=== PATIENT | female | born 1960 | race Caucasian/White ===

== ENCOUNTER 2017-09-04 11:02 | Emergency (ER) | payer MEDICARE, OTHER, SELFPAY | END 2017-09-04 11:25 | disposition home or self-care (01) | LOC: SCSER 11:02 | DX: D17.1 Benign lipomatous neoplasm of skin and subcutaneous tissue of trunk (principal); E78.5 Hyperlipidemia, unspecified; I10 Essential (primary) hypertension; E10.9 Type 1 diabetes mellitus without complications; F17.210 Nicotine dependence, cigarettes, uncomplicated | CPT/HCPCS: 99282 ==

== ENCOUNTER 2017-09-27 11:27 | Outpatient (CLI) | payer MEDICARE | END 2017-09-27 11:28 | disposition home or self-care (01) | LOC: BICMAMMO 11:27 | PROVIDERS: ATTEND Family Medicine | DX: Z12.31 Encounter for screening mammogram for malignant neoplasm of breast (principal); Z80.3 Family history of malignant neoplasm of breast | CPT/HCPCS: 77063; 77067 ==

== ENCOUNTER 2018-02-08 07:45 | Outpatient (CLI) | payer MEDICARE ==
--- NOTE | 2018-02-08 09:55 | CT ---
CT CHEST NONCONTRAST LOW DOSE SCREENING: FINDINGS: Tobacco abuse. COMPARISON: 05/22/15. FINDINGS: Scattered calcified granulomata are apparent, measuring up to 0.9 cm in the right lower lobe. Calcif ied mediastinal lymph nodes are also apparent, consistent with healed granulomatous disease. No nonc alcified nodules are apparent. Lungs remain hyperinflated with scattered emphysematous change. Lack of contrast limits evaluation of mediastinum. No bulky adenopathy. Calcification in the celestin ry arteries. Bovine origin of the great vessels at the aortic arch. IMPRESSION: 1. Lung RADS category 1. Negative. Suggest routine followup. 2. Chronic obstructive pulmonary disease. 3. Atherosclerosis. POS: [facility]
== END 2018-02-08 07:46 | disposition home or self-care (01) ==
LOC: CT 07:45
PROVIDERS: ATTEND Family Medicine
DX: F17.210 Nicotine dependence, cigarettes, uncomplicated (principal); J44.9 Chronic obstructive pulmonary disease, unspecified; I25.10 Atherosclerotic heart disease of native coronary artery without angina pectoris
CPT/HCPCS: G0297

== ENCOUNTER 2018-05-18 16:50 | Emergency (ER) | payer MEDICARE ==
[~2018-05-18 16:50] MED LIST: ISOVUE-370 76%-LOCM 1 ML ONE
[2018-05-18 17:44] LABS: #Basophils 0.2 thou/uL (0.0-0.2); #Eosinphils 0.1 thou/uL (0.0-0.7); #Lymphocytes 4.1 thou/uL (1.20-3.40); #Monocytes 0.5 thou/uL (0.11-0.59); %Basophils 1.6 % (0.0-1.0); %Eosinophils 0.9 % (0.0-10.0); %Monocytes 4.7 % (0.0-10.0); %Neutrophils 54.8 % (42.0-75.0); Hemoglobin 14.1 g/dL (12.0-16.0); Mean Corpuscular HGB CONC 33.1 g/dL (32.0-36.0); Mean Corpuscular Hemoglobin 31.4 pg (27.0-31.0); Mean Corpuscular Volume 94.8 fL (78.0-98.0); Mean Platelet Volume 8.8 fL (7.4-10.4); Platelet Count 314 thou/uL (130-400); RBC Distribution Width 11.7 % (11.5-14.5); Red Blood Cell (RBC) Count 4.51 mill/uL (4.20-5.40); White Blood Cell (WBC) Count 10.8 thou/uL (4.8-10.8)
[2018-05-18 17:55] LABS: ALT (SGPT) 24 U/L (8-55); AST (SGOT) 31 U/L (5-34); Albumin 4.7 g/dL (3.5-5.0); Alkaline Phosphatase 154 U/L (40-150); Anion Gap 21 mmol/L (10-20); BUN (Urea Nitrogen) 24 mg/dL (9.8-20.1); Bilirubin, Total 0.4 mg/dL (0.2-1.2); CK (CPK) 54 U/L (29-168); Calc. Creatinine Clearance 0 mL/min (70-130); Calcium 11.3 mg/dL (7.8-10.44); Carbon Dioxide 24 mmol/L (22-29); Chloride 96 mmol/L (98-107); Estimated GFR-MDRD 34; Globulin 3.7 g/dL (2.4-3.5); Glucose 318 mg/dL (70-105); Lipase 43 U/L (8-78); Protein, Total 8.4 g/dL (6.0-8.3); Sodium 136 mmol/L (136-145)
[2018-05-18 17:59] LABS: CKMB 0.9 ng/mL (0-6.6); Troponin I Less than 0.010 ng/mL (< 0.028)
[2018-05-18 18:29] LABS: Base Excess-Venous 3.7 mmol/L (0 (+/- 2.5)); Bicarbonate (HCO3v) 29.7 mmol/L (1.0-85.0); CO2 Tension (PvCO2) 49.6 mmHg (41.0-51.0); Calcium, Ionized 1.22 mmol/L (1.12-1.32); Hemoglobin - Calc 12.4 g/dL (12.0-18.0); O2 Tension (PvO2) 35.5 mmHg (35.0-45.0); Potassium 4.3 mmol/L (3.4-4.7); T. Carbon Dioxide 31.2 mmol/L (1.0-85.0); pH (Venous) 7.385 (7.35-7.45); vO2 Saturation-calc 66.3 % (94-98)
[2018-05-18 18:43] LABS: Bilirubin Moderate (Negative); Blood, Urine Negative (Negative); Clarity CLEAR (Clear); Glucose, Urine (Dipstick) >=1000 mg/dL (Negative); Leukocyte Negative (Negative); Nitrite Negative (Negative); Protein, Urine (Dipstick) Negative (Neg-Trace); Specific Gravity, Urine 1.028 (1.002-1.036); Urobilinogen 0.2 mg/dL (0.2-1.0); pH, Urine 5.5 (5.0-9.0)
--- NOTE | 2018-05-18 19:45 | RAD ---
PORTABLE CHEST ONE VIEW: 05/18/18 at 4:32 p.m. HISTORY: Nausea, vomiting, hyperglycemia. FINDINGS: The heart size is normal. The lungs were expanded without focal areas of consolidation, pneumothorace s or pleural effusions. IMPRESSION: No acute process. POS: [facility]
--- NOTE | 2018-05-18 22:16 | CT ---
CT PULMONARY ANGIOGRAM WITH IV CONTRAST AND 3D POSTPROCESSIN05/18/18 HISTORY: Syncope. FINDINGS: There is good contrast opacification of the pulmonary artery vasculature without filling defects to s uggest pulmonary embolism. The thoracic aorta is well opacified without aneurysm or dissection. No pl eural or pericardial effusions are seen. There are emphysematous changes in the lung mejia bilateral ly. Calcified granulomas are seen in the lower lobes on either side. There is a noncalcified 1 cm nod ule in the posterior aspect of the right upper lobe. Upper abdominal tomograms demonstrate calcified granulomas in the liver and spleen. No acute osseous abnormalities are seen. IMPRESSION: 1. No CT evidence of pulmonary embolism. 2. 1 cm right upper lobe lung nodule. Further evaluation with PET scan should be obtained. Code LN. Code T POS: [facility]
== END 2018-05-18 19:56 | disposition home or self-care (01) ==
LOC: ERS 16:50
DX: E10.65 Type 1 diabetes mellitus with hyperglycemia (principal); E86.0 Dehydration; R91.1 Solitary pulmonary nodule; I10 Essential (primary) hypertension; E78.5 Hyperlipidemia, unspecified; F17.210 Nicotine dependence, cigarettes, uncomplicated; Z79.899 Other long term (current) drug therapy
CPT/HCPCS: 36415; 36416; 71045; 71275; 80053; 81003; 82010; 82330; 82553; 82803; 83690; 83880; 84484; 85025; 85379; 87040; 87086; 93005; 96360; 96361

== ENCOUNTER 2018-10-11 15:13 | Outpatient (CLI) | payer MEDICARE ==
--- NOTE | 2018-10-13 09:00 | MMO ---
FILMS COMPARED: The present examination has been compared to prior imaging studies performed at [facility] on 10/06/2000, and at [facility] on 04/13/2008, 06/10/2012, 06/12/2013, 07/02/2014 and 09/27/2017. MAMMOGRAM FINDINGS: The breasts are extremely dense, which may lower the sensitivity of mammography. There are benign appearing calcifications seen in the left breast. There are no suspicious masses, calcifications or areas of architectural distortion. IMPRESSION: CALCIFICATIONS IN THE LEFT BREAST ARE BENIGN. A ROUTINE FOLLOW-UP MAMMOGRAM IN 1 YEAR IS RECOMMENDED. ACR BI-RADS Category 2 - Benign finding
== END 2018-10-11 15:14 | disposition home or self-care (01) ==
LOC: BICMAMMO 15:13
PROVIDERS: ATTEND Family Medicine
DX: Z12.31 Encounter for screening mammogram for malignant neoplasm of breast (principal); R92.1 Mammographic calcification found on diagnostic imaging of breast
CPT/HCPCS: 77063; 77067

== ENCOUNTER 2018-11-22 11:35 | Outpatient (CLI) | payer MEDICARE ==
--- NOTE | 2018-11-22 12:35 | RAD ---
LEFT FOOT THREE VIEWS: 11/22/18 HISTORY: Left foot pain. FINDINGS/IMPRESSION: There are healing fracture involving the neck of the proximal phalanx of the fourth toe. There is a f racture lucency visualized indicating inadequate/incomplete healing. POS: [facility]
== END 2018-11-22 11:36 | disposition home or self-care (01) ==
LOC: BICRAD 11:35
PROVIDERS: ATTEND Family Medicine
DX: M79.672 Pain in left foot (principal); S92.512D Displaced fracture of proximal phalanx of left lesser toe(s), subsequent encounter for fracture with routine healing
CPT/HCPCS: 36415; 80053; 83036; 83970

== ENCOUNTER → 2019-04-27 | Day surgery (SDC) | payer MEDICARE ==
--- NOTE | 2019-04-27 13:39 | MMO ---
Left Breast MAMMO Unilat Diag DDI LT+SUZIE. CLINICAL HISTORY: Patient is 58 years old and is seen for diagnostic exam. The patient has the following family history of breast cancer: mother, at age 75. The patient has no personal history of cancer. VIEWS: The views performed were: left craniocaudal with tomosynthesis; left mediolateral oblique with tomosynthesis; and left mediolateral with tomosynthesis. FILMS COMPARED: The present examination has been compared to prior imaging studies performed at [facility] on 09/27/2017, 10/11/2018 and 04/27/2019. This study has been interpreted with the assistance of computer-aided detection. MAMMOGRAM FINDINGS: The breast is extremely dense, which may lower the sensitivity of mammography. There are no suspicious masses, suspicious calcifications, or new areas of architectural distortion. There are no mammographic or sonographic abnormalities in the area of palpable concern. The patient is referred back to her clinician. Negative imaging findings should not preclude biopsy if clinical findings are suspicious. IMPRESSION: THERE IS NO MAMMOGRAPHIC EVIDENCE OF MALIGNANCY. THE RESULTS OF THIS EXAM WERE SENT TO THE PATIENT. ACR BI-RADS Category 1 - Negative MAMMOGRAPHY NOTE: 1. A negative mammogram report should not delay a biopsy if a dominant of clinically suspicious mass is present. 2. Approximately 10% to 15% of breast cancers are not detected by mammography. 3. Adenosis and dense breasts may obscure an underlying neoplasm. Reported by: AMARJIT DOMÍNGUEZ MD Electonically Signed: [id number]
--- NOTE | 2019-04-27 14:29 | ULT ---
LIMITED LEFT BREAST ULTRASOUND: DATE: 04/27/2019. PROVIDED CLINICAL HISTORY: Left breast palpable abnormality. FINDINGS: Limited sonographic interrogation of the left breast was performed at the 2 o'clock position. There is no definite, targetable sonographic abnormality in the region of palpable concern at real-time asha ging. A simple cyst is seen measuring about 5 mm at the 1 o'clock position. IMPRESSION: BI-RADS category 1 - negative. No definite, targetable sonographic abnormality is evident in the reg ion of palpable concern. Negative imaging findings should not preclude further evaluation of a clini anatoliy suspicious area. The patient is referred back to her clinician. POS: [facility]
== END ==
LOC: BICULT 11:39
PROVIDERS: ATTEND Surgery
DX: N60.02 Solitary cyst of left breast (principal); Z88.0 Allergy status to penicillin; Z88.5 Allergy status to narcotic agent
CPT/HCPCS: 76642; 77065; G0279

== ENCOUNTER 2020-03-03 00:26 | Inpatient (IN) | payer MEDICARE ==
[2020-03-03] MEDS ORDERED: Insulin Regular 100 units/100 ml in NS IVPB SCH (01:00)
[2020-03-03 01:19] LABS: Anion Gap 24 mmol/L (10-20); BUN (Urea Nitrogen) 32 mg/dL (9.8-20.1); Calc. Creatinine Clearance 0 mL/min (70-130); Calcium 8.7 mg/dL (7.8-10.44); Chloride 111 mmol/L (98-107); Estimated GFR-MDRD 40; Glucose 411 mg/dL (80-115); Magnesium 1.9 mg/dL (1.6-2.6); Phosphorus 4.2 mg/dL (2.3-4.7); Potassium 4.7 mmol/L (3.5-5.1); Sodium 138 mmol/L (136-145)
[2020-03-03 01:23] LABS: Carbon Dioxide 8 mmol/L (23-31)
[2020-03-03] MEDS ORDERED: Ondansetron PF 4 MG/2 ML Vial IVP PRN (02:25)
[2020-03-03] MEDS ORDERED: Ondansetron ODT 4 MG TAB PO PRN (02:25)
[2020-03-03] MEDS ORDERED: Sodium Chloride 0.9% 1,000 ML IV PRN ×4 (02:25)
[2020-03-03] MEDS ORDERED: Acetaminophen 325 MG TAB PO PRN (02:25)
[2020-03-03] MEDS ORDERED: Dextrose 5 %-0.45 % NaCl 1,000 ML IV PRN (02:25)
[2020-03-03] MEDS ORDERED: Acetaminophen 650 MG Suppository PR PRN (02:25)
[2020-03-03] MEDS ORDERED: NS 0.9% w/ 20 MEQ KCL 1,000 ML IV PRN ×2 (02:25)
[2020-03-03] MEDS ORDERED: D5 1/2 NS w/20 mEq KCL 1,000 ML IV PRN (02:25)
[2020-03-03] MEDS ORDERED: Calcium Carbonate 500 MG ChewTAB PO PRN (02:25)
[2020-03-03] MEDS ORDERED: HUMULIN R 100 UNITS in Sodium Chloride 0.9% 100 ML IVPB SCH (02:30)
--- NOTE | 2020-03-03 02:43 | PDOC.HHP ---
Hospitalist HPI - History of Present Illness weakness n/v History of Present Illness: Case of an 59y/o female with pmhx of DM htn copd and hypercholesterolemia who comes to hospital due to generalise weakness nausea and vomiting. patient refers she was on her usual state of health until today when she started to have generalize weakness nausea and vomiting. she went to an ED and she was diagnosed with DKA. patient states she ran out of her long acting insulin for 36hrs before admission. patient denies any fever chills dysuria cough or chills. does refers an episode of diarrhea today. patient was started on ivfs and insulin pump and hospitalist was called for further evaluation and management Hospitalist ROS - Review of Systems All other systems reviewed; all pertinent +/- noted in HPI/Subj Hospitalist History - Past Surgical History Other Surgical History: pud repair - Family History Family History: reports: diabetes mellitus - Social History Smoking Status: Current every day smoker Alcohol: reports: None Drugs: reports: marijuana - Exam General Appearance: NAD, awake alert Eye: PERRL, anicteric sclera ENT: normocephalic atraumatic, no oropharyngeal lesions Neck: supple, symmetric, no JVD Heart: RRR, no murmur, no gallops Respiratory: CTAB, no wheezes, no rales, no ronchi Gastrointestinal: soft, non-tender, non-distended Extremities: no cyanosis, no clubbing, no edema Skin: normal turgor, no lesions Neurological: cranial nerve grossly intact, normal sensation to touch Musculoskeletal: normal tone, normal strength Psychiatric: normal affect, normal behavior, A&O x 3 Hospitalist Results - Labs Result Diagrams: 03/03/20 00:49 Lab results: Sodium 138 mmol/L (136-145) 03/03/20 00:49 Potassium 4.7 mmol/L (3.5-5.1) 03/03/20 00:49 Chloride 111 mmol/L (98-107) H 03/03/20 00:49 Carbon Dioxide 8 mmol/L (23-31) L* 03/03/20 00:49 BUN 32 mg/dL (9.8-20.1) H 03/03/20 00:49 Creatinine 1.36 mg/dL (0.6-1.1) H 03/03/20 00:49 Glucose 411 mg/dL (80-115) H 03/03/20 00:49 Calcium 8.7 mg/dL (7.8-10.44) 03/03/20 00:49 Hospitalist H&P A/P - Problem (1) DKA (diabetic ketoacidoses) Code(s): E11.10 - TYPE 2 DIABETES MELLITUS WITH KETOACIDOSIS WITHOUT COMA Status: Acute (2) ABAD (acute kidney injury) Code(s): N17.9 - ACUTE KIDNEY FAILURE, UNSPECIFIED Status: Acute (3) Hypercholesterolemia Code(s): E78.00 - PURE HYPERCHOLESTEROLEMIA, UNSPECIFIED Status: Acute (4) Smoker Code(s): F17.200 - NICOTINE DEPENDENCE, UNSPECIFIED, UNCOMPLICATED Status: Acute (5) Hyperkalemia Code(s): E87.5 - HYPERKALEMIA Status: Acute - Plan Plan: 59y/o female that ran out of her long acting insulin comes with dka dka - blood sugar in the 700s with, increased anion gap, co2 at 8 with ketones on urine consistent w dka dx - iv hydrataion - insulin pump - r/o infection as cause of decompensation, cxr w chronic nothing acute, changes will get b/c and u/a. does have an hx of running out of medication - medical icu admission - monitor anion gap - acc q 1hr abad - likely secondary to hypvolemia - ivfs - f/u u/o and renal function hyperkalemia - secondary to shift - on insulin drip - watch for hypokalemia - bmp q 4hrs smoker -advised to quit
[2020-03-03 03:10] LABS: ALT (SGPT) 12 U/L (8-55); AST (SGOT) 20 U/L (5-34); Albumin 3.3 g/dL (3.4-4.8); Alkaline Phosphatase 93 U/L (40-110); Anion Gap 21 mmol/L (10-20); BUN (Urea Nitrogen) 29 mg/dL (9.8-20.1); Bilirubin, Total 0.2 mg/dL (0.2-1.2); Calc. Creatinine Clearance 0 mL/min (70-130); Chloride 115 mmol/L (98-107); Estimated GFR-MDRD 43; Globulin 2.5 g/dL (2.4-3.5); Glucose 334 mg/dL (80-115); Potassium 4.6 mmol/L (3.5-5.1); Protein, Total 5.8 g/dL (6.0-8.3); Sodium 139 mmol/L (136-145)
[2020-03-03 03:16] LABS: Carbon Dioxide 8 mmol/L (23-31)
[2020-03-03 03:17] LABS: Hemoglobin 10.1 g/dL (12.0-16.0); Lymphocytes 11 % (21-51); MDiff Complete? YES; Mean Corpuscular HGB CONC 32.8 g/dL (32.0-36.0); Mean Corpuscular Hemoglobin 31.4 pg (27.0-31.0); Mean Corpuscular Volume 95.8 fL (78.0-98.0); Mean Platelet Volume 8.5 fL (7.4-10.4); Monocytes 6 % (0-10); Neutrophil 83 % (42-75); Platelet Count 287 thou/uL (130-400); Platelet Morphology Comment Appears Adequate; RBC Distribution Width 12.2 % (11.5-14.5); Red Blood Cell (RBC) Count 3.23 mill/uL (4.20-5.40); White Blood Cell (WBC) Count 19.2 thou/uL (4.8-10.8)
[2020-03-03] MEDS: Sodium Chloride 0.9% 1,000 ML IV SCH ×2 (03:47→15:28)
[2020-03-03 03:55] VITALS: BMI 18.3
[2020-03-03 04:12] VITALS: BP 125/44
[2020-03-03] MEDS ORDERED: Electrolyte Replacement Protocol FS PRN (06:30)
[2020-03-03] MEDS ORDERED: Magnesium 2 GM/50 ML 2 GM in Premix Bag 1 BAG IVPB SCH (06:30)
[2020-03-03 07:02] LABS: Anion Gap 15 mmol/L (10-20); BUN (Urea Nitrogen) 25 mg/dL (9.8-20.1); Calc. Creatinine Clearance 41 mL/min (70-130); Calcium 8.2 mg/dL (7.8-10.44); Carbon Dioxide 13 mmol/L (23-31); Chloride 116 mmol/L (98-107); Estimated GFR-MDRD 47; Glucose 168 mg/dL (80-115); Potassium 4.1 mmol/L (3.5-5.1); Sodium 140 mmol/L (136-145)
[2020-03-03 07:44] LABS: Bacteria/HPF 1+ HPF (None Seen); Bilirubin Negative (Negative); Blood, Urine Negative (Negative); Clarity Clear (Clear); Glucose, Urine (Dipstick) Greater than 1000 mg/dL (Negative); Ketone, Urine 100 mg/dL (Negative); Leukocyte Negative Leu/uL (Negative); Nitrite Negative (Negative); Protein, Urine (Dipstick) 10 mg/dL (Neg-Trace); RBC/HPF 0-3 HPF (0-3); Specific Gravity, Urine 1.011 (1.002-1.036); Squamous Epithelial 0-3 HPF (0-3); Urobilinogen Normal mg/dL (Less than 2); WBC/HPF 0-3 HPF (0-3)
[2020-03-03 07:45] LABS: Urine Culture Reflex Yes Yes
[2020-03-03] MEDS: Enoxaparin Sodium 40 MG/0.4 ML SYRINGE SC SCH (10:20)
[2020-03-03] MEDS: Famotidine/PF 20 mg/2ml Vial SLOW IVP SCH ×2 (10:20→20:58)
[2020-03-03 11:20] LABS: Anion Gap 12 mmol/L (10-20); BUN (Urea Nitrogen) 20 mg/dL (9.8-20.1); Calc. Creatinine Clearance 47 mL/min (70-130); Calcium 8.3 mg/dL (7.8-10.44); Carbon Dioxide 16 mmol/L (23-31); Chloride 120 mmol/L (98-107); Estimated GFR-MDRD 55; Glucose 170 mg/dL (80-115); Potassium 5.1 mmol/L (3.5-5.1); Sodium 143 mmol/L (136-145)
[2020-03-03] MEDS ORDERED: HumaLOG 300 UNITS/3 ML VIAL SC PRN (12:26)
[2020-03-03] MEDS ORDERED: Insulin Glargine 30 UNITS in Pre-Filled Syringe 1 EACH SC SCH (14:30)
[2020-03-04] MEDS: Sodium Chloride 0.9% 1,000 ML IV SCH ×2 (01:13→10:10)
[2020-03-04 03:02] LABS: #Eosinphils 0.1 thou/uL (0.0-0.7); #Lymphocytes 3.6 thou/uL (1.20-3.40); #Monocytes 0.8 thou/uL (0.11-0.59); #Neutrophils 7.5 thou/uL (1.40-6.50); %Basophils 0.3 % (0.0-1.0); %Eosinophils 0.7 % (0.0-10.0); %Lymphocytes 30.3 % (21.0-51.0); %Monocytes 6.4 % (0.0-10.0); %Neutrophils 62.3 % (42.0-75.0); Hemoglobin 9.8 g/dL (12.0-16.0); Mean Corpuscular HGB CONC 32.6 g/dL (32.0-36.0); Mean Corpuscular Hemoglobin 30.7 pg (27.0-31.0); Mean Corpuscular Volume 94.3 fL (78.0-98.0); Mean Platelet Volume 8.4 fL (7.4-10.4); Platelet Count 273 thou/uL (130-400); RBC Distribution Width 12.5 % (11.5-14.5); Red Blood Cell (RBC) Count 3.18 mill/uL (4.20-5.40)
[2020-03-04 03:22] LABS: Anion Gap 10 mmol/L (10-20); BUN (Urea Nitrogen) 10 mg/dL (9.8-20.1); Calc. Creatinine Clearance 56 mL/min (70-130); Calcium 8.7 mg/dL (7.8-10.44); Carbon Dioxide 20 mmol/L (23-31); Chloride 115 mmol/L (98-107); Estimated GFR-MDRD 68; Glucose 73 mg/dL (80-115); Magnesium 1.8 mg/dL (1.6-2.6); Potassium 3.9 mmol/L (3.5-5.1); Sodium 141 mmol/L (136-145)
[2020-03-04] MEDS ORDERED: Magnesium 2 GM/50 ML 2 GM in Premix Bag 1 BAG IVPB SCH (06:30)
[2020-03-04 07:33] VITALS: TEMP 99
[2020-03-04] MEDS ORDERED: Insulin Glargine 30 UNITS in Pre-Filled Syringe 1 EACH SC SCH (09:00)
[2020-03-04] MEDS: Enoxaparin Sodium 40 MG/0.4 ML SYRINGE SC SCH (10:10)
[2020-03-04] MEDS: Famotidine/PF 20 mg/2ml Vial SLOW IVP SCH (10:11)
--- NOTE | 2020-03-04 11:59 | DIS ---
DATE OF ADMISSION: 03/03/2020 DATE OF DISCHARGE: 03/04/2020 PRIMARY CARE PROVIDER: Mario Le MD DISCHARGE DIAGNOSES: 1. Diabetic ketoacidosis. 2. Metabolic acidosis. 3. Hyponatremia. CONDITION: Condition of the patient on the day of discharge: Stable. I assessed Ms. Sosa on the day of discharge. She denies any chest pain or shortness of breath. Vital signs are stable. S1 and S2 are heard, regular. Lungs are clear to auscultation bilaterally. HOSPITAL COURSE: Ms. Sosa is a pleasant 59-year-old lady, who was admitted to [facility] on March 03, 2020, for diabetic ketoacidosis. Please refer to Dr. Monroy's history and physical note dated March 03, 2020, for further details. She was treated with intravenous insulin and intravenous fluids. She had improved rapidly. She is being discharged home in a stable condition on March 04, 2020. Many thanks for allowing me to participate in your patient's care. Please feel free to contact me with any questions or concerns. DISCHARGE MEDICATIONS: NovoLog insulin by sliding scale and Tresiba 30 units subcutaneously daily, prescription for 3 pens to be dispensed. POST-ACUTE CARE FOLLOWUP: With primary care provider in 3 days. ACTIVITY: No restrictions. DIET: Diabetic. DISCHARGE DESTINATION: Home. TIME SPENT: Total amount of time spent in coordinating this discharge: 25 minutes. Job ID: [id number]
== END 2020-03-04 10:25 | disposition home or self-care (01) | DRG 638 ==
LOC: ERS 00:26 → IMCU/EMU 02:23
PROVIDERS: ADMIT Internal Medicine; ATTEND Internal Medicine
DX: E11.10 Type 2 diabetes mellitus with ketoacidosis without coma (principal); N17.9 Acute kidney failure, unspecified; E87.1 Hypo-osmolality and hyponatremia; E78.00 Pure hypercholesterolemia, unspecified; E87.5 Hyperkalemia; E86.1 Hypovolemia; F17.200 Nicotine dependence, unspecified, uncomplicated; Z71.6 Tobacco abuse counseling
CPT/HCPCS: 36415; 36416; 80048; 81001; 82010; 83735; 84100; 85007; 85025; 85027; 87040; 87077; 87086; 87186; 96365; 96366; J1650; J1815; J3475; J3480; J3490; S0028

== ENCOUNTER 2020-05-06 07:30 | Outpatient (CLI) | payer MEDICARE, OTHER ==
[2020-05-06 11:29] LABS: #Basophils 0.1 thou/uL (0.0-0.2); #Eosinphils 0.2 thou/uL (0.0-0.7); #Monocytes 0.8 thou/uL (0.11-0.59); #Neutrophils 6.5 thou/uL (1.40-6.50); %Basophils 0.8 % (0.0-1.0); %Eosinophils 1.9 % (0.0-10.0); %Lymphocytes 28.3 % (21.0-51.0); %Monocytes 7.1 % (0.0-10.0); %Neutrophils 61.9 % (42.0-75.0); Hemoglobin 13.1 g/dL (12.0-16.0); Mean Corpuscular Volume 96.7 fL (78.0-98.0); Mean Platelet Volume 8.8 fL (7.4-10.4); Platelet Count 344 thou/uL (130-400); RBC Distribution Width 12.8 % (11.5-14.5); Red Blood Cell (RBC) Count 4.37 mill/uL (4.20-5.40); White Blood Cell (WBC) Count 10.5 thou/uL (4.8-10.8)
[2020-05-06 11:55] LABS: ALT (SGPT) 12 U/L (8-55); AST (SGOT) 16 U/L (5-34); Albumin 4.3 g/dL (3.4-4.8); Alkaline Phosphatase 129 U/L (40-110); Anion Gap 18 mmol/L (10-20); BUN (Urea Nitrogen) 16 mg/dL (9.8-20.1); Bilirubin, Total 0.3 mg/dL (0.2-1.2); Calc. Creatinine Clearance 0 mL/min (70-130); Calcium 10.5 mg/dL (7.8-10.44); Carbon Dioxide 22 mmol/L (23-31); Chloride 101 mmol/L (98-107); Estimated GFR-MDRD 55; Glucose 390 mg/dL (80-115); Potassium 5.1 mmol/L (3.5-5.1); Protein, Total 7.3 g/dL (6.0-8.3); Sodium 136 mmol/L (136-145)
[2020-05-06 17:57] LABS: SARS-CoV-2 MS2 Positive; SARS-CoV-2 N Gene Negative; SARS-CoV-2 S Gene Negative; SARS-CoV-2 by NAA Not Detected (NotDetected); SARS-CoV-2 orf1ab Negative
== END 2020-05-06 07:31 | disposition home or self-care (01) ==
LOC: LABBT 07:30
PROVIDERS: ATTEND Surgery
DX: Z01.812 Encounter for preprocedural laboratory examination (principal); N63.20 Unspecified lump in the left breast, unspecified quadrant; R19.02 Left upper quadrant abdominal swelling, mass and lump; Z20.828 Contact with and (suspected) exposure to other viral communicable diseases
CPT/HCPCS: 80053; 85025; U0003; 87635

== ENCOUNTER 2020-05-10 05:31 | Day surgery (SDC) | payer MEDICARE ==
[2020-05-06 14:04] VITALS: BMI 17.9
[2020-05-10] MEDS ORDERED: Lidocaine 2% PF 5 ML VIAL ONE (06:46)
[2020-05-10] MEDS ORDERED: Bupivacaine HCl 0.5%/Epinephrine 1:200,000/PF 30 ml Vial ONE (06:46)
[2020-05-10] MEDS ORDERED: Fentanyl 100 MCG/2 ML VIAL ONE ×2 (06:57→09:03)
[2020-05-10] MEDS ORDERED: Levofloxacin 500 mg/D5W 100 ml Premix Bag ONE (06:58)
[2020-05-10] MEDS ORDERED: Bupivacaine/Epinephrine 0.25% 30 ML VIAL ONE (08:04)
[2020-05-10] MEDS ORDERED: Ondansetron PF 4 MG/2 ML Vial ONE (09:18)
[2020-05-10] MEDS ORDERED: PROPOFOL 200 MG/20 ML VIAL ONE (09:18)
[2020-05-10] MEDS ORDERED: Dexamethasone 20 MG/5 ML VIAL ONE (09:18)
[2020-05-10] MEDS ORDERED: Ketorolac Tromethamine 30 MG/ML VIAL ONE (09:18)
[2020-05-10] MEDS ORDERED: Lidocaine 1% PF 5 ML VIAL ONE (09:18)
--- NOTE | 2020-05-10 11:13 | OP ---
DATE OF PROCEDURE: 05/10/2020 PREOPERATIVE DIAGNOSES: 1. Soft tissue mass, left upper abdomen. 2. Left breast mass. PROCEDURES PERFORMED: 1. Excisional biopsy of lipoma, left upper abdomen. 2. Left breast biopsy. INDICATIONS: This is a 59-year-old female who had an enlarging soft tissue mass in the left upper abdomen as well as a mobile mass in the left upper outer breast, that was benign appearing by mammography, but seemed to be getting larger. FINDINGS: 1. Multilobular 4 x 4 cm lipoma, left upper quadrant of abdomen. 2. A 3 x 2 x 3 rubbery mass, consistent with fibroadenoma, left upper breast. DESCRIPTION OF PROCEDURE: After informed consent was obtained, the patient was taken to the operating room and given general mask anesthesia. She was placed in supine position. Her abdomen and breast were prepped and draped in usual fashion. Local anesthesia was infiltrated subcutaneously and deep. A transverse incision was performed over the palpable mass in the left upper abdomen. Subcu divided sharply. The mass was a fatty tumor in multiple lobules, that was dissected out both digitally and with hemostats and excised sharply, sent to Pathology for further analysis. Hemostasis achieved with electrocautery. Subcu reapproximated with interrupted 3-0 Vicryl. The skin closed with a running subcuticular 4-0 Rapide. Steri-Strips applied. Then, a curvilinear incision was performed over the mobile mass in the upper outer left breast. It was grasped with an Allis clamp and excised sharply. Hemostasis was achieved with electrocautery as well as interrupted [id number] of 3-0 Vicryl suture, and local anesthesia was infiltrated subcutaneously and deep. Hemostasis assured. Subcu reapproximated with interrupted 3-0 Vicryl. The skin closed with a running subcuticular 4-0 Rapide. The mass was marked with a black suture superior and a white suture anterior and sent to Pathology for further analysis. Hemostasis was achieved. Steri- Strips applied. Sterile bandage applied. The patient tolerated the procedures well, transferred to Recovery in good condition. Sponge and needle count verified correct x2. Job ID: [id number]
--- NOTE | 2020-05-14 14:08 | EKG ---
Test Reason : PREOP Blood Pressure : / mmHG Vent. Rate : 067 BPM Atrial Rate : 067 BPM P-R Int : 160 ms QRS Dur : 086 ms QT Int : 402 ms P-R-T Axes : 082 082 084 degrees QTc Int : 424 ms Normal sinus rhythm Normal ECG No previous ECGs available Confirmed by SERGIO WALKER ([id number]) on 05/14/2020 2:08:33 PM Referred By: PAM Confirmed By:SERGIO WALKER
== END 2020-05-10 10:40 | disposition home or self-care (01) ==
LOC: SDC 05:31
PROVIDERS: ATTEND Surgery
PROC: 0HBU0ZZ Excision of Left Breast, Open Approach (ICD-10-PCS; principal; 2020-05-10)
PROC: 0JB80ZZ Excision of Abdomen Subcutaneous Tissue and Fascia, Open Approach (ICD-10-PCS; 2020-05-10)
DX: N63.21 Unspecified lump in the left breast, upper outer quadrant (principal); N60.22 Fibroadenosis of left breast; N60.12 Diffuse cystic mastopathy of left breast; D17.1 Benign lipomatous neoplasm of skin and subcutaneous tissue of trunk; E10.9 Type 1 diabetes mellitus without complications; F32.9 Major depressive disorder, single episode, unspecified; F17.210 Nicotine dependence, cigarettes, uncomplicated; Z88.0 Allergy status to penicillin; Z88.5 Allergy status to narcotic agent; Z88.8 Allergy status to other drugs, medicaments and biological substances
CPT/HCPCS: 36416; 88304; 88307; 93005; 93010; J1100; J1885; J1956; J2001; J2405; J2704; J3010

== ENCOUNTER 2023-09-28 09:00 | Outpatient (CLI) | payer MEDICARE | END 2023-09-28 09:01 | disposition home or self-care (01) | LOC: BICMAMMO 09:00 | PROVIDERS: ATTEND Nurse Practitioner Family | DX: Z12.31 Encounter for screening mammogram for malignant neoplasm of breast (principal); N63.11 Unspecified lump in the right breast, upper outer quadrant; Z80.3 Family history of malignant neoplasm of breast; Z91.89 Other specified personal risk factors, not elsewhere classified; Z98.890 Other specified postprocedural states | CPT/HCPCS: 77063; 77067 ==

== ENCOUNTER 2023-10-01 09:34 | Outpatient (CLI) | payer MEDICARE | END 2023-10-01 09:35 | disposition home or self-care (01) | LOC: BICMAMMO 09:34 | PROVIDERS: ATTEND Nurse Practitioner Family | DX: N63.11 Unspecified lump in the right breast, upper outer quadrant (principal); Z98.890 Other specified postprocedural states | CPT/HCPCS: 76642; 77065; G0279 ==